=== PATIENT | female | born 1985 | race American Indian/Alaskan Native ===

== ENCOUNTER 2017-03-03 21:00 | Outpatient (CLI) | payer OTHER ==
[2017-03-03 21:58] VITALS: BP 121/80
[2017-03-03] MEDS ORDERED: LACTATED RINGERS 1,000 ML IV ONE (22:01)
[2017-03-03 22:57] LABS: Bacteria,Urine 1+ /HPF (Negative); Bilirubin,Urine NEG (Negative); Blood,Urine NEG (Negative); Ketones,Urine NEG (Negative); Leukocyte Esterase,Urine SM (Negative); Mucus,Urine FEW /HPF; Nitrite,Urine NEG (Negative); Protein,Urine <15 mg/dL mg/dL (Negative); Urobilinogen,Urine < 2.0 mg/dL (<2.0)
== END 2017-03-03 23:40 | disposition home or self-care (01) ==
LOC: TRG 21:00
PROVIDERS: ATTEND Obstetrics & Gynecology
DX: O47.03 False labor before 37 completed weeks of gestation, third trimester (principal); Z3A.30 30 weeks gestation of pregnancy
CPT/HCPCS: 59025; 81001

== ENCOUNTER 2017-03-28 16:51 | Outpatient (CLI) | payer MEDICAID ==
[2017-03-28 17:34] VITALS: BP 132/62
[2017-03-28] MEDS ORDERED: LACTATED RINGERS 1,000 ML ONE (18:13)
[2017-03-28 18:40] LABS: Bacteria,Urine 1+ /HPF (Negative); Bilirubin,Urine NEG (Negative); Blood,Urine NEG (Negative); Color,Urine Yellow (Yellow); Mucus,Urine FEW /HPF; Nitrite,Urine NEG (Negative); Urobilinogen,Urine < 2.0 mg/dL (<2.0)
[2017-03-28] MEDS ORDERED: LACTATED RINGERS 1,000 ML IV SCH (19:00)
== END 2017-03-28 20:17 | disposition home or self-care (01) ==
LOC: TRG 16:51
PROVIDERS: ATTEND Obstetrics & Gynecology Gynecology
DX: O47.03 False labor before 37 completed weeks of gestation, third trimester (principal); Z3A.34 34 weeks gestation of pregnancy
CPT/HCPCS: 59025; 81001; 96360; J7120

== ENCOUNTER 2017-03-31 02:05 | Outpatient (CLI) | payer MEDICAID ==
[2017-03-31] MEDS ORDERED: LACTATED RINGERS 1,000 ML IV ONE (02:08)
[2017-03-31 02:28] VITALS: BP 127/78
[2017-03-31 02:50] LABS: Bacteria,Urine 1+ /HPF (Negative); Bilirubin,Urine NEG (Negative); Blood,Urine NEG (Negative); Color,Urine Yellow (Yellow); Mucus,Urine FEW /HPF; Nitrite,Urine NEG (Negative); Protein,Urine <15 mg/dL mg/dL (Negative); Urobilinogen,Urine < 2.0 mg/dL (<2.0)
== END 2017-03-31 03:21 | disposition home or self-care (01) ==
LOC: TRG 02:05
PROVIDERS: ATTEND Obstetrics & Gynecology
DX: O47.03 False labor before 37 completed weeks of gestation, third trimester (principal); Z3A.34 34 weeks gestation of pregnancy
CPT/HCPCS: 59025; 81001

== ENCOUNTER 2017-04-05 18:33 | Outpatient (CLI) | payer MEDICAID ==
[2017-04-05] MEDS ORDERED: LACTATED RINGERS 500 ML IV ONE (18:45)
[2017-04-05 19:24] LABS: Amorphous Crystals,Urine Few; Bilirubin,Urine NEG (Negative); Blood,Urine NEG (Negative); Color,Urine Yellow (Yellow); Mucus,Urine FEW /HPF; Nitrite,Urine NEG (Negative)
[2017-04-05 19:29] VITALS: BP 139/87
[2017-04-05] MEDS ORDERED: ZOFRAN IV ONE (19:54)
== END 2017-04-05 20:15 | disposition home or self-care (01) ==
LOC: TRG 18:33
PROVIDERS: ATTEND Obstetrics & Gynecology
DX: O47.03 False labor before 37 completed weeks of gestation, third trimester (principal); Z3A.35 35 weeks gestation of pregnancy
CPT/HCPCS: 59025; 81001; 96360; J2405; J7120